=== PATIENT | male | born 1980 | race African-American/Black ===

== ENCOUNTER 2018-05-07 16:06 | Emergency (ER) | payer OTHER ==
[~2018-05-07] VITALS: Ht 177.8 cm; Wt 152.0 kg
[2018-05-07 18:48] LABS: ABSOLUTE NEUTROPHILS 4.3 thou/uL (1.4-8.2); BASOPHILS 0.8 % (0.0-2.0); HEMATOCRIT 47.1 % (42.0-52.0); HEMOGLOBIN 15.7 gm/dL (14.0-18.0); LYMPHOCYTES 25.4 % (24.0-44.0); MCH 25.4 pg (26.0-34.0); MCHC 33.2 g/dL (28.0-37.0); MCV 76.5 fL (80.0-100.0); MONOCYTES 9.2 % (1.0-8.0); PLATELET COUNT 251 thou/uL (150-400); POLYS 62.6 % (36.0-66.0); RBC 6.16 mil/uL (4.50-6.00); RDW 15.6 % (10.5-14.5); WBC 6.9 thou/uL (4.0-11.0)
[2018-05-07 18:56] LABS: CALCIUM 9.3 mg/dL (8.5-10.1); POTASSIUM 4.2 mmol/L (3.5-5.1)
[2018-05-07 19:02] LABS: ALBUMIN 3.7 g/dL (3.4-5.0); TOTAL BILIRUBIN 0.5 mg/dL (<0.1-1.0); TOTAL PROTEIN 8.6 g/dL (6.4-8.2)
[2018-05-07] MEDS ORDERED: ULTRAM 50MG TAB50 MG PO (20:39)
[2018-05-07] MEDS ORDERED: NAPROSYN500 MG PO (20:39)
[2018-05-07] MEDS ORDERED: AUGMENTIN 875-1 EACH PO (20:39)
[2018-05-07 21:20] VITALS: BP 135/74
== END 2018-05-07 21:30 | disposition home or self-care (01) ==
LOC: ER 16:06
PROVIDERS: Physician Assistant
DX: K61.0 Anal abscess (principal); F17.210 Nicotine dependence, cigarettes, uncomplicated; Z88.5 Allergy status to narcotic agent

== ENCOUNTER 2019-04-23 08:41 | Emergency (ER) | payer OTHER ==
[~2019-04-23] VITALS: Ht 177.8 cm; Wt 145.2 kg
[~2019-04-23 08:41] MED LIST: AUGMENTIN 875-1 EACH PO; NAPROSYN500 MG PO; ULTRAM 50MG TAB50 MG PO
[2019-04-23] MEDS ORDERED: TRAMADOL 50 MG50 MG PO (10:00)
[2019-04-23] MEDS ORDERED: CLINDAMYCIN HC300 MG PO (10:00)
[2019-04-23 10:25] VITALS: BP 159/102
== END 2019-04-23 10:32 | disposition home or self-care (01) ==
LOC: ER 08:41
DX: K04.7 Periapical abscess without sinus (principal); K12.2 Cellulitis and abscess of mouth; E11.9 Type 2 diabetes mellitus without complications; F17.210 Nicotine dependence, cigarettes, uncomplicated; Z88.6 Allergy status to analgesic agent